=== PATIENT | female | born 2000 | race Caucasian/White ===

== ENCOUNTER 2022-10-23 14:54 | Emergency (ER) | payer SELFPAY ==
[2022-10-23] MEDS ORDERED: Ondansetron 4 MG/2 ML SDV IV ONE (15:03)
[2022-10-23] MEDS ORDERED: Sodium Chloride 0.9% 1,000 ML IV ONE (15:03)
[2022-10-23] MEDS ORDERED: Albuterol 0.083% 2.5 MG/3 ML Neb Soln NEB ONE (15:03)
[2022-10-23] MEDS ORDERED: Dexamethasone 4 MG/ML SDV IVPUSH ONE (15:03)
[2022-10-23] MEDS ORDERED: Famotidine 20 MG/2 ML SDV IVPUSH ONE (15:03)
== END 2022-10-23 16:30 | disposition home or self-care (01) ==
LOC: DL.ED 14:54
DX: O9A.219 Injury, poisoning and certain other consequences of external causes complicating pregnancy, unspecified trimester (principal); T78.2XXA Anaphylactic shock, unspecified, initial encounter; O99.719 Diseases of the skin and subcutaneous tissue complicating pregnancy, unspecified trimester; L50.0 Allergic urticaria; O99.519 Diseases of the respiratory system complicating pregnancy, unspecified trimester; J45.909 Unspecified asthma, uncomplicated; Z88.0 Allergy status to penicillin; Z91.048 Other nonmedicinal substance allergy status
CPT/HCPCS: 81025; 96361; 96374; 96375; 99284; J1100; J2405; J3490; J7030; J7613-GY

== ENCOUNTER 2024-05-08 16:57 | Emergency (ER) | payer SELFPAY ==
[2024-05-08 17:28] LABS: BASOPHILS PERCENT AUTO 0.4 % (0.0-1.0); EOSINOPHILS PERCENT AUTO 2.7 % (1.0-3.0); HEMATOCRIT 44.7 % (37.0-47.0); HEMOGLOBIN 14.8 g/dL (12.0-16.0); LYMPHOCYTES PERCENT AUTO 29.1 % (20.5-50.1); MEAN CORPUSCULAR HEMOGLOBIN 29.9 pg (27.0-34.0); MEAN CORPUSCULAR HGB CONC 33.1 g/dL (33.0-35.0); MEAN CORPUSCULAR VOLUME 90.3 fL (80-100); MONOCYTES PERCENT AUTO 6.9 % (2-8); NEUTROPHILS PERCENT AUTO 60.9 % (42.2-75.2); PLATELET COUNT,PLT 194 10^3/uL (150-450); RED BLOOD CELL COUNT 4.95 10^6/uL (4.2-5.4); WHITE BLOOD CELL COUNT,WBC 7.1 10^3/uL (5.0-10.0)
[2024-05-08 17:37] LABS: APPEARANCE,URINE CLOUDY (CLEAR); BILIRUBIN,URINE NEGATIVE (NEGATIVE); COLOR,URINE DARK YELLOW (YELLOW); GLUCOSE,URINE NEGATIVE (NEGATIVE); KETONES,URINE NEGATIVE (NEGATIVE); LEUKOCYTE ESTERASE,URINE SMALL (NEGATIVE); NITRITE,URINE NEGATIVE (NEGATIVE); OCCULT BLOOD,URINE MODERATE (NEGATIVE); PROTEIN,URINE 30 (NEGATIVE); UROBILINOGEN,URINE 0.2 mg/dL (0.2-1.0)
[2024-05-08 17:44] LABS: PROTHROMBIN TIME 10.7 SEC (9.0-12.0); PTT,PARTIAL THROMBOPLSTIN TIME 22.7 SEC (22.0-34.0)
[2024-05-08] MEDS: Ondansetron 4 MG Tab.DIS PO ONE (17:45)
[2024-05-08 17:46] LABS: BACTERIA,URINE MODERATE /HPF (0-FEW/HPF); EPITHELIAL CELLS,URINE MANY /HPF (NOT SEEN); MUCUS,URINE MANY /LPF (NOT SEEN); WBC,URINE 20-30 /HPF (0-5/HPF)
[2024-05-08 17:47] LABS: ALANINE AMINOTRANSFERASE,ALT 41 U/L (14-59); ALBUMIN 3.3 g/dL (3.4-5.0); ALKALINE PHOSPHATASE 91 U/L (46-116); AMYLASE 84 U/L (25-115); ASPARTATE AMNIOTRANSFERASE,AST 20 U/L (15-37); BILIRUBIN TOTAL 0.7 mg/dL (0.2-1.0); BLOOD UREA NITROGEN,BUN 13 mg/dL (7-18); BUN/CREATININE RATIO 11.9 (No establ ref range); C-REACTIVE PROTEIN 0.95 ng/dL (<=0.50); CALCIUM 8.3 mg/dL (8.5-10.1); CARBON DIOXIDE,CO2 27 mmol/L (21-32); CHLORIDE,CL 104 mmol/L (98-107); CREATININE 1.09 mg/dL (0.55-1.02); GLUCOSE RANDOM 121 mg/dL (70-99); LIPASE 70 U/L (16-77); PROTEIN TOTAL,TP 7.5 g/dL (6.4-8.2); SODIUM,NA 139 mmol/L (136-145)
[2024-05-08 17:48] LABS: A/G RATIO 0.79; ESTIMATED GFR 73 mL/min (>=60)
[2024-05-08 17:51] LABS: LACTIC ACID 0.9 mmol/L (0.4-2.0)
[2024-05-08] MEDS: Iopamidol 612 MG/ML 100 ML Bottle IVPUSH ONE (18:57)
[2024-05-08] MEDS: Nitrofurantoin Monohydrate/Macrocrystalline 100 MG Cap PO ONE (20:36)
== END 2024-05-08 20:40 | disposition home or self-care (01) ==
LOC: DL.ED 16:57
DX: N39.0 Urinary tract infection, site not specified (principal); R31.9 Hematuria, unspecified; R10.12 Left upper quadrant pain; J45.909 Unspecified asthma, uncomplicated; Z88.0 Allergy status to penicillin; Z91.048 Other nonmedicinal substance allergy status
CPT/HCPCS: 36415; 74177; 80053; 81001; 81025; 82150; 83605; 83690; 84145; 85025; 85610; 85730; 86140; 87086; 87088; 87186; 99284; A9270; Q9967